=== PATIENT | female | born 1975 | race Caucasian/White ===

== ENCOUNTER 2024-03-28 16:15 | Outpatient (RCR) | payer OTHER, SELFPAY | END 2024-03-28 23:59 | disposition home or self-care (01) | LOC: ROT 16:15 | PROVIDERS: ATTENDING PHYSICIAN Physician Assistant | DX: M65.4 Radial styloid tenosynovitis [de Quervain] (principal); Z73.6 Limitation of activities due to disability | CPT/HCPCS: 97010; 97035; 97110; 97140; 97166; 97535 ==

== ENCOUNTER 2024-04-26 16:18 | Outpatient (RCR) | payer OTHER, SELFPAY | END 2024-04-26 23:59 | disposition home or self-care (01) | LOC: ROT 16:18 | PROVIDERS: ATTENDING PHYSICIAN Physician Assistant | DX: M65.4 Radial styloid tenosynovitis [de Quervain] (principal); Z73.6 Limitation of activities due to disability | CPT/HCPCS: 97010; 97018; 97035; 97110; 97140 ==

== ENCOUNTER 2024-05-15 16:15 | Outpatient (RCR) | payer OTHER, SELFPAY | END 2024-05-15 23:59 | disposition home or self-care (01) | LOC: ROT 16:15 | PROVIDERS: ATTENDING PHYSICIAN Physician Assistant | DX: M65.4 Radial styloid tenosynovitis [de Quervain] (principal); Z73.6 Limitation of activities due to disability | CPT/HCPCS: 97010; 97018; 97035; 97110; 97140; 97535 ==

== ENCOUNTER → 2024-12-21 15:32 | Outpatient (REF) | payer OTHER, SELFPAY | LOC: WDC 15:32 | PROVIDERS: ATTENDING PHYSICIAN Physician Assistant | DX: Z12.31 Encounter for screening mammogram for malignant neoplasm of breast (principal) | CPT/HCPCS: 77063; 77067 ==